=== PATIENT | male | born 2000 | race Two or more races ===

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

== ENCOUNTER 2024-06-02 13:49 | Emergency (ER) | payer MEDICAID ==
[~2024-06-02] VITALS: Ht 185.4 cm; Wt 146.8 kg
[~2024-06-02 13:49] MED LIST: PRED20TA2 PO
[2024-06-02 14:20] VITALS: BP 148/93; TEMP 98.7
[2024-06-02 14:21] VITALS: PULSE 91; RESP 18; O2SAT 95
[2024-06-02] MEDS: KETOROLAC TROMETH 60MG/2ML VIAL IM ONE (14:56)
[2024-06-02] MEDS ORDERED: NAPR-746 PO (15:05)
== END 2024-06-02 15:28 | disposition home or self-care (01) ==
LOC: ER 13:49
DX: M77.8 Other enthesopathies, not elsewhere classified (principal); M67.831 Other specified disorders of synovium, right wrist; Z79.899 Other long term (current) drug therapy
CPT/HCPCS: 73110; 96372; 99283; J1885